=== PATIENT | male | born 1990 | race African-American/Black ===

== ENCOUNTER 2020-05-20 09:48 | Emergency (ER) | payer OTHER, SELFPAY ==
--- NOTE | ~2020-05-20 | XR_ITS ---
EXAMINATION: XR chest 2V DATE: 05/20/2020 10:44 INDICATION: Cough. TECHNIQUE: Frontal and lateral views of the chest were obtained. COMPARISON: Chest 2 views 09/14/2018 FINDINGS: There is chronic mild discoid atelectasis or scarring at left lung base. No pleural effusio n or pneumothorax. The heart size is normal. There are surgical clips in the mediastinum. IMPRESSION: 1. Chronic mild discoid atelectasis versus scarring at left lung base. Reviewed, dictated and finalized at location A. [employer]
[2020-05-20 10:08] VITALS: BP 118/73; PULSE 96; RESP 16; TEMP 36.1; O2SAT 96
[2020-05-20 10:23] VITALS: BP 118/73; PULSE 96; RESP 16; TEMP 36.1; O2SAT 96
--- NOTE | 2020-05-20 10:31 | ED.SOB ---
HPI - SOB/Dyspnea General Chief Complaint: Shortness of Breath/Dyspnea Stated Complaint: Asthma attack/CP Time Seen by Provider: 05/20/20 10:30 Source: patient Mode of arrival: ambulatory Limitations: no limitations History of Present Illness HPI Narrative: William Landeros is a 29 yo male with a PMH of asthma, cerebral palsy, bronchitis, with a asthma attack that started this AM. Stated he was sob last night and started to cough. 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 States that he has problems at change of season Related Data Allergies Allergy/AdvReac Type Severity Reaction Status Date / Time No Known Allergies Allergy Unverified 05/20/20 10:03 Review of Systems Review of Systems: Narrative: CONSTITUTIONAL: Denies fever, chills, sweats. EYES: Denies visual changes, redness, discharge. ENT: Denies rhinorrhea, congestion, sore throat, otalgia. CARDIOVASCULAR: Denies chest pain, palpitations, edema. RESPIRATORY:has dyspnea, has wheezing, mild cough GASTROINTESTINAL: Denies abdominal pain, nausea, vomiting, diarrhea. GENITOURINARY: Denies dysuria, hematuria, abnormal discharge SKIN: Denies rash or itching. NEUROLOGIC: Denies numbness, or focal weakness. PSYCHIATRIC: Denies anxiety or depression. [facility] Past Medical History Medical History Asthma Bronchitis Cerebral palsy Family History Family History Other Hypertension Social History Social History (Updated 05/20/20 @ 10:39 by Franci Denise CNP) Smoking status: Current some day smoker Alcohol intake: current Comments At time of signature, I agree with nursing past medical, surgical, social and family history. There is no relevant family history pertinent to the presenting complaint. Exam Narrative: Exam Narrative: GENERAL: This is a well-nourished, well-developed patient, in moderate distress. HEAD: normocephalic, atraumatic. EYES: Sclera clear/white. Vision is grossly intact. EARS: External ears normal. Hearing grossly intact. NOSE: External nose normal without nasal discharge, nares without redness, no rhinorrhea. THROAT: Mucous membranes moist, NECK: Neck supple, non-tender CARDIOVASCULAR: Regular rate and rhythm without murmurs, gallops, or rubs. RESPIRATORY: Diminished to auscultation. Breath sounds equal bilaterally. Mild wheezes,no rales, some rhonchi. GASTROINTESTINAL: Abdomen soft, non-tender, SKIN: warm, intact with no suspicious lesions or rash, good texture and turgor. NEURO: awake, alert, and oriented to person, place and time. There were no obvious focal neurologic abnormalities. Steady gait EXTREMITIES: Normal range of motion. BACK: Nontender without deformity Course Course Emergency Course: Came to express care with asthma attack that occurred this morning Chest [id number]:no effusion, chronic L LL atelectasis Started on Zithromax steroids and renewal of albuterol inhaler; states that has nebulizer solution at home Vital Signs Vital signs: Vital Signs Temperature 97.0 F L 05/20/20 10:08 Pulse Rate 96 05/20/20 10:08 Respiratory Rate 16 05/20/20 10:08 Blood Pressure 118/73 05/20/20 10:08 Pulse Oximetry 96 05/20/20 10:08 Temperature 97.0 F L 05/20/20 10:23 Pulse Rate 96 05/20/20 10:23 Respiratory Rate 16 05/20/20 10:23 Blood Pressure 118/73 05/20/20 10:23 Pulse Oximetry 96 05/20/20 10:23 MDM - SOB/Dyspnea Differential Diagnosis Differential diagnosis: Likely acute exacerbation of chronic obstructive airways disease, asthma with exacerbation and other Discharge Plan Discharge Clinical Impression: Asthma with exacerbation Qualifiers: Asthma severity: moderate Asthma persistence: persistent Qualified Code(s): J45.41 - Moderate persistent asthma with (acute) exacerbation Patient D
[2020-05-20] MEDS: methylPREDNISolone ACETATE 80 MG/ML VIAL IM (10:50)
== END 2020-05-20 11:03 | disposition home or self-care (01) ==
PROVIDERS: Emergency Provider Nurse Practitioner; PCP Family Medicine
DX: J45.41 Moderate persistent asthma with (acute) exacerbation (principal); F17.200 Nicotine dependence, unspecified, uncomplicated; G80.9 Cerebral palsy, unspecified
CPT/HCPCS: 71046; 96372; 99213; G0463; J1040

== ENCOUNTER 2020-08-19 01:42 | Emergency (ER) | payer OTHER, SELFPAY ==
[2020-08-19 01:44] VITALS: BP 124/89; PULSE 74; RESP 18; TEMP 36.8; O2SAT 100
--- NOTE | 2020-08-19 02:34 | PC.NURSE ---
Patient moved from room 5 to room 9 with sitter. SO at bedside with patient Patient placed in green scrubs, sitter present. Assumed care of patient following report
[2020-08-19 02:51] LABS: Basophils Absolute Auto 0.1 K/mm3 (0.0-0.1); Basophils Percent Auto 1.1 % (0.2-1.2); Eosinophils Absolute Auto 0.1 K/mm3 (0-0.3); Eosinophils Percent Auto 1.4 % (0-4.4); Hematocrit 49.4 % (42.0-52.0); Immature Granulocyte Absolute 0.02 K/mm3 (0.00-0.031); Immature Granulocyte Percent A 0.3 % (0-0.5); Lymphocytes Absolute Auto 2.42 K/mm3 (0.9-3.2); Lymphocytes Percent Auto 36.9 % (18.3-44.2); Mean Corpuscular HGB Conc 34.4 g/dl (32-36); Mean Corpuscular Hemoglobin 32.4 pg (26-34); Mean Corpuscular Volume 94.1 fl (80-100); Mean Platelet Volume 9.5 fl (7.4-10.4); Monocytes Absolute Auto 0.5 K/mm3 (0.1-0.6); Monocytes Percent Auto 7.5 % (2.6-8.5); Neutrophils Absolute Auto 3.5 K/mm3 (1.3-6.7); Neutrophils Percent Auto 52.8 % (45.5-73.1); Platelet Count Result 230 k/mm3 (150-375); Red Blood Count 5.25 M/mm3 (4.6-6.20); Red Cell Distribution Width 12.7 % (11.5-14.5); White Blood Count 6.6 K/mm3 (4.5-10.0)
[2020-08-19 03:03] LABS: Ethanol < 10 mg/dL (<10)
[2020-08-19 03:12] LABS: Atypical Lymphocytes Present; Platelet Estimate Adequate (Adequate)
[2020-08-19 03:23] LABS: Add Urine Microscopic? YES; Appearance Urine Clear (Clear); Bilirubin Urine Negative (Negative); Blood Urine Negative (Negative); Color Urine Yellow (Yellow); Glucose Urine UA Negative (Negative); Ketones Urine Negative (Negative); Leukocyte Esterase Ur Negative LEU/UL (Negative); Nitrate Urine Negative (Negative); Protein Urine 1+ mg/dL (Negative); Specific Grav Ur 1.026 (1.001-1.035); Squamous Epithelial Cell Urine Rare /hpf (Few); Urobilinogen Urine Negative mg/dL (<2.0); WBC Urine 0-3 /hpf
[2020-08-19 03:36] LABS: Alanine Aminotransferase 15 U/L (4-50); Albumin Level 4.2 g/dL (3.5-5.1); Alkaline Phosphatase 96 U/L (38-126); Anion Gap 4 mmol/L (8-16); Aspartate Amino Transferase 26 U/L (17-59); Bilirubin,Total 0.3 mg/dL (0.2-1.3); Blood Urea Nitrogen 18 mg/dL (9-20); Calcium 8.9 mg/dL (8.4-10.2); Carbon Dioxide 29 mmol/L (22-30); Chloride 105 mmol/L (98-107); Estimated CRCL calculation 79 ml/min; Estimated Glomerular Filt Rate > 60; Glucose 104 mg/dL (75-110); Potassium 4.1 mmol/L (3.4-5.0); Sodium 138 mmol/L (137-145)
[2020-08-19 03:38] LABS: Amphetamine Screen Urine Negative (Negative); Barbiturate Screen Urine Negative (Negative); Benzodiazepines Screen Urine Negative (Negative); Cannabinoid Screen Urine Positive (Negative); Cocaine Screen Urine Negative (Negative); Methadone Screen Urine Negative (Negative); Opiate Screen Urine Negative (Negative); Phencyclidine Screen Urine Negative (Negative)
--- NOTE | 2020-08-19 04:46 | ED.PSYCH ---
HPI - Psych General Chief Complaint: Psychiatric Symptoms Stated Complaint: weakness/ heart rate pumping real fast Time Seen by Provider: 08/19/20 01:58 History of Present Illness HPI Narrative: Patient is a 29-year-old male who presents ER with complaints of weakness. Reports he has been feeling weak at his job and fatigues quickly. Also reports he had abrupt shortness of breath prior to arrival here. Upon arrival he is tearful. He does have history of asthma but this felt different. Upon further discussion patient reports he is depressed, 2 days ago he had taken 4 cyclobenzaprine's and attempt to end his life. Denies any particular stressor that is causing him to feel more depressed than usual. He has not been treated for depression previously. He is not hearing voices or seeing things are not actually there. Related Data Allergies Allergy/AdvReac Type Severity Reaction Status Date / Time No Known Allergies Allergy Unverified 05/20/20 10:03 Review of Systems Review of Systems: All systems reviewed & are unremarkable except as noted in HPI and below Constitutional: Constitutional: Denies chills, Denies fever(s) and Denies weakness ENT: Denies nasal congestion and Denies sore throat Respiratory: Respiratory: Denies cough, Denies dyspnea and Denies wheezing Gastrointestinal: Gastrointestinal: Denies abdominal pain, Denies nausea and Denies vomiting Psychiatric: Psychiatric: Reports anxiety, Reports depression, Denies homicidal ideation and Reports suicidal ideation [facility] Past Medical History Medical History (Updated 08/19/20 @ 06:51 by Kam Orellana MD) Asthma Bronchitis Cerebral palsy Surgical History Surgical History (Updated 08/19/20 @ 06:24 by Kam Orellana MD) No pertinent past surgical history Family History Family History Other Hypertension Social History Social History (Updated 05/20/20 @ 10:39 by Franci Denise CNP) Smoking status: Current some day smoker Alcohol intake: current Exam Narrative: Exam Narrative: GENERAL: Well-appearing, well-nourished, and in no acute distress. HEAD: Normocephalic, atraumatic. EYES: PERRL and EOMI. CHEST: Clear to auscultation. No respiratory distress. HEART: Regular rate and rhythm. Normal peripheral pulses. ABDOMEN: Soft, nontender, nondistended. EXTREMITIES: Normal range of motion. No edema. NEURO: Alert and oriented x3. PSYCH: Flat affect, endorses depression and thoughts of harming self. No active plan. Course Reevaluation(s) Reevaluation #1: Patient medically stable. He has been evaluated by crisis. Date: 08/19/20 Time: 06:36 Reevaluation #2: Patient has been evaluated by crisis. Patient significant other is supportive. They live in a house with 8 people and they will be able to keep an eye on him. He has been contracted for safety. Date: 08/19/20 Time: 06:49 Vital Signs Vital signs: Vital Signs Temperature 98.3 F 08/19/20 01:44 Pulse Rate 74 08/19/20 01:44 Respiratory Rate 18 08/19/20 01:44 Blood Pressure 124/89 08/19/20 01:44 Pulse Oximetry 100 08/19/20 01:44 Temperature 98.3 F 08/19/20 01:44 Pulse Rate 74 08/19/20 01:44 Respiratory Rate 18 08/19/20 01:44 Blood Pressure 124/89 08/19/20 01:44 Pulse Oximetry 100 08/19/20 01:44 MDM - Psych Lab Data Result diagrams: 08/19/20 02:41 08/19/20 03:13 Labs: Lab Results 08/19/20 08/19/20 08/19/20 Range/Units 02:41 02:41 02:41 WBC 6.6 (4.5-10.0) K/mm3 RBC 5.25 (4.6-6.20) M/mm3 Hgb 17.0 (14.0-18.0) g/dL Hct 49.4 (42.0-52.0) % MCV 94.1 (80-100) fl MCH 32.4 (26-34) pg MCHC 34.4 (32-36) g/dl RDW 12.7 (11.5-14.5) % Plt Count 230 (150-375) k/mm3 MPV 9.5 (7.4-10.4) fl Immature Gran % (Auto) 0.3 (0-0.5) % Neut % (Auto) 52.8 (45.5-73.1) % Lymph % (Auto) 36.9 (18.3-44.2) % Luce % (A
[2020-08-19 07:21] VITALS: BP 126/68; PULSE 69; RESP 15; O2SAT 98
== END 2020-08-19 07:23 | disposition home or self-care (01) ==
PROVIDERS: Emergency Provider Emergency Medicine; PCP Family Medicine
DX: F32.9 Major depressive disorder, single episode, unspecified (principal); J45.909 Unspecified asthma, uncomplicated; G80.9 Cerebral palsy, unspecified; F17.200 Nicotine dependence, unspecified, uncomplicated
CPT/HCPCS: 36415; 80053; 80307; 81001; 84443; 85025; 99284

== ENCOUNTER 2020-11-16 23:57 | Emergency (ER) | payer OTHER, SELFPAY ==
--- NOTE | ~2020-11-16 | XR_ITS ---
EXAMINATION: XR chest 1V portable 11/17/2020 01:43 INDICATION: Shortness of breath with cough. Bilateral rib pain. PROCEDURE: AP portable chest COMPARISON: 05/20/2020 FINDINGS: The lungs are clear. The lungs are mildly hyperinflated, which can be associated with react benedicto airway disease. The cardiomediastinal silhouette is within normal limits. There are no pleural e ffusions. There is no pneumothorax suspected. IMPRESSION: 1: NO ACUTE CARDIOPULMONARY DISEASE. Reviewed, dictated and finalized at location A.
[2020-11-16 23:58] VITALS: BP 123/72; PULSE 120; RESP 20; TEMP 36.4; O2SAT 98
--- NOTE | 2020-11-17 01:25 | ECG_ITS ---
Measurements Intervals [place] Rate: 102 P: 83 VA: 133 QRS: 82 QRSD: 83 T: 52 QT: 312 QTc: 407 Interpretive Statements SINUS TACHYCARDIA POSSIBLE LEFT ATRIAL ENLARGEMENT BASELINE WANDER- V6 BORDERLINE ECG Electronically Signed On 11-17-2020 7:37:49 CDT by John Chan D.O.
[2020-11-17 02:30] LABS: Basophils Percent Auto 0.4 % (0.2-1.2); Eosinophils Percent Auto 0.3 % (0-4.4); Hematocrit 43.2 % (42.0-52.0); Hemoglobin 14.5 g/dL (14.0-18.0); Immature Granulocyte Absolute 0.03 K/mm3 (0.00-0.031); Immature Granulocyte Percent A 0.3 % (0-0.5); Lymphocytes Absolute Auto 1.71 K/mm3 (0.9-3.2); Lymphocytes Percent Auto 19.1 % (18.3-44.2); Mean Corpuscular HGB Conc 33.6 g/dl (32-36); Mean Corpuscular Hemoglobin 31.9 pg (26-34); Mean Corpuscular Volume 94.9 fl (80-100); Mean Platelet Volume 9.8 fl (7.4-10.4); Monocytes Absolute Auto 0.8 K/mm3 (0.1-0.6); Monocytes Percent Auto 9.4 % (2.6-8.5); Neutrophils Absolute Auto 6.3 K/mm3 (1.3-6.7); Neutrophils Percent Auto 70.5 % (45.5-73.1); Platelet Count Result 192 k/mm3 (150-375); Red Blood Count 4.55 M/mm3 (4.6-6.20); Red Cell Distribution Width 13.2 % (11.5-14.5); White Blood Count 8.9 K/mm3 (4.5-10.0)
[2020-11-17 02:39] LABS: Lactic Acid Reflex 1.6 mmol/L (0.7-2.1); Prothrombin Time 14.2 Seconds (11.1-14.7)
[2020-11-17 02:40] LABS: Partial Thromboplastin Time 34.9 SECONDS (22.3-36.8)
[2020-11-17 02:41] LABS: Alanine Aminotransferase 15 U/L (4-50); Albumin Level 4.4 g/dL (3.5-5.1); Alkaline Phosphatase 68 U/L (38-126); Anion Gap 6 mmol/L (8-16); Aspartate Amino Transferase 22 U/L (17-59); Bilirubin,Total 0.3 mg/dL (0.2-1.3); Blood Urea Nitrogen 13 mg/dL (9-20); Calcium 9.4 mg/dL (8.4-10.2); Carbon Dioxide 30 mmol/L (22-30); Chloride 105 mmol/L (98-107); Estimated CRCL calculation 52 ml/min; Estimated Glomerular Filt Rate > 60; Glucose 105 mg/dL (75-110); Potassium 3.3 mmol/L (3.4-5.0); Sodium 141 mmol/L (137-145)
[2020-11-17 02:42] LABS: D Dimer 0.45 ug/mL (<0.48)
[2020-11-17 02:57] LABS: CRP 12.6 mg/dL (<1.0)
[2020-11-17 03:05] VITALS: BP 134/72; PULSE 95; RESP 17; O2SAT 100
--- NOTE | 2020-11-17 03:45 | ED.GENADULT ---
HPI - General Adult General Chief complaint: Asthma Stated complaint: asthma Time Seen by Provider: 11/17/20 03:23 Source: patient Mode of arrival: ambulatory Limitations: no limitations History of Present Illness HPI narrative: This is a 30 year old male with history of asthma who presents for evaluation of intermittent cough and shortness of breath. He states he has been having URI symptoms for 4 days. He reports runny nose, cough, headache, bilateral rib pain with coughing. HE also has intermittent wheezing. He denies nausea, vomiting or diarrhea. 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 Related Data Allergies Allergy/AdvReac Type Severity Reaction Status Date / Time No Known Allergies Allergy Unverified 05/20/20 10:03 Review of Systems Review of Systems: All systems reviewed & are unremarkable except as noted in HPI and below Constitutional: Constitutional: Denies chills and Denies fever(s) ENT: Reports nasal congestion Cardiovascular: Cardiovascular: Reports chest pain, Denies rapid heart rate and Denies radiating jaw, neck or arm pain Respiratory: Respiratory: Reports cough, Reports dyspnea and Reports wheezing Gastrointestinal: Gastrointestinal: Denies abdominal pain, Denies diarrhea, Denies nausea and Denies vomiting Neurologic: Reports headache(s) PMF Past Medical History Medical History Asthma Bronchitis Cerebral palsy Surgical History Surgical History No pertinent past surgical history Family History Family History Other Hypertension Social History Social History (Updated 05/20/20 @ 10:39 by Franci Denise CNP) Smoking status: Current some day smoker Alcohol intake: current Exam Const: General: no acute distress and alert Nutritional Appearance: thin Orientation/consciousness: patient oriented x3 HENMT: Head: normocephalic and atraumatic Ears: TM's normal bilaterally Face and sinus: face symmetric Mouth: Yes Normal oral and palatal mucosa present, Yes lip normal, Yes tongue normal, Yes oropharynx normal and Yes moist mucous membranes Throat: uvula midline Eyes: EOM: EOMs intact bilaterally Chest: Chest palpation & inspection: normal inspection of the chest Resp: Effort & Inspection: normal respiratory effort and no retractions Auscultation: clear to auscultation bilaterally Cardio: Rate: regular rate Rhythm: regular rhythm Heart sounds: no murmurs GI: GI Palp: Yes Soft to palpation, No Tenderness to palpation present (GI) and No Guarding due to palpation present (GI) Auscultation: normal bowel sounds Skin: General skin exam: normal color Rashes: no rashes Neuro: General: patient oriented x3, moves all extremities and CN's II-XI intact bilaterally Extrem: General: no pedal edema Psych: Mental Status: mental status grossly normal Affect: normal affect Course Reevaluation(s) Reevaluation #1: I have discussed with patient that he will be tested for covid. He will be started on antibiotics. Vitals are stable now. He has no hypoxia. He will continue to use nebulizer at home as needed. Date: 11/17/20 Time: 03:49 Vital Signs Vital signs: Vital Signs Temperature 97.5 F L 11/16/20 23:58 Pulse Rate 120 H 11/16/20 23:58 Respiratory Rate 20 11/16/20 23:58 Blood Pressure 123/72 11/16/20 23:58 Pulse Oximetry 98 11/16/20 23:58 Temperature 97.5 F L 11/16/20 23:58 Pulse Rate 96 11/17/20 05:01 Respiratory Rate 18 11/17/20 05:01 Blood Pressure 121/83 11/17/20 05:01 Pulse Oximetry 99 11/17/20 05:01 Medical Decision Making Vital Signs Vital Signs: Vital Signs Temperature 97.5 F L 11/16/20 23:58 Pulse Rate 120 H 11/16/20 23:58 Respiratory Rate 20 11/16/20 2
[2020-11-17] MEDS: predniSONE 20 MG TABLET 40 MG PO (04:26)
[2020-11-17] MEDS: POTASSIUM CHLORIDE 20 MEQ TABLET 40 MEQ PO (04:26)
[2020-11-17 05:01] VITALS: BP 121/83; PULSE 96; RESP 18; O2SAT 99
[2020-11-18 14:53] LABS: SARS-CoV-2 RNA PCR Negative
== END 2020-11-17 05:04 | disposition home or self-care (01) ==
PROVIDERS: Emergency Provider General Practice; PCP Family Medicine
DX: J18.9 Pneumonia, unspecified organism (principal); Z20.822 Contact with and (suspected) exposure to COVID-19; G80.9 Cerebral palsy, unspecified; J45.909 Unspecified asthma, uncomplicated; F17.200 Nicotine dependence, unspecified, uncomplicated; R00.0 Tachycardia, unspecified; R94.31 Abnormal electrocardiogram [ECG] [EKG]
CPT/HCPCS: 36415; 71045; 80053; 83605; 85025; 85380; 85610; 85730; 86140; 93005; 96365; 99284; A9270; C9803; J0696; J7512; U0003; U0005